=== PATIENT | male | born 1985 | race Caucasian/White ===

== ENCOUNTER 2018-02-26 15:42 | Emergency (ER) | payer OTHER ==
[~2018-02-26] VITALS: Ht 177.8 cm; Wt 88.6 kg
[2018-02-26] MEDS ORDERED: METF500T7 PO (16:00)
[2018-02-26] MEDS ORDERED: GLIP5 PO (16:00)
[2018-02-26 16:05] LABS: GLUCOSE,POINT OF CARE 290 MG/DL (70-110)
[2018-02-26] MEDS ORDERED: IBUPROFEN 600 MG TABLET PO ONE (17:00)
[2018-02-26 17:50] VITALS: BP 153/86
== END 2018-02-26 17:53 | disposition home or self-care (01) ==
LOC: EMS 15:45
DX: S93.402A Sprain of unspecified ligament of left ankle, initial encounter (principal); E11.9 Type 2 diabetes mellitus without complications; X58.XXXA Exposure to other specified factors, initial encounter; Y93.89 Activity, other specified; Y92.89 Other specified places as the place of occurrence of the external cause; Y99.8 Other external cause status
CPT/HCPCS: 29505; 29515; 99284

== ENCOUNTER 2018-03-01 14:41 | Emergency (ER) | payer OTHER ==
[~2018-03-01] VITALS: Ht 177.8 cm; Wt 88.2 kg
[~2018-03-01 14:41] MED LIST: GLIP5 PO; METF500T7 PO
[2018-03-01] MEDS ORDERED: IBUPROFEN 800 MG TABLET PO ONE (16:30)
[2018-03-01 18:38] LABS: GLUCOSE,POINT OF CARE 265 MG/DL (70-110)
[2018-03-01 18:48] VITALS: BP 132/82
== END 2018-03-01 18:35 | disposition home or self-care (01) ==
LOC: EMS 14:42
DX: S82.832A Other fracture of upper and lower end of left fibula, initial encounter for closed fracture (principal); R03.0 Elevated blood-pressure reading, without diagnosis of hypertension; E11.9 Type 2 diabetes mellitus without complications; X50.1XXA Overexertion from prolonged static or awkward postures, initial encounter; Y93.89 Activity, other specified; Y92.89 Other specified places as the place of occurrence of the external cause; Y99.8 Other external cause status
CPT/HCPCS: 29515; 99284

== ENCOUNTER 2018-04-03 13:00 | Emergency (ER) | payer OTHER ==
[~2018-04-03] VITALS: Ht 177.8 cm; Wt 188.0 kg
[2018-04-03] MEDS ORDERED: IBUPROFEN 800 MG TABLET PO ONE (14:00)
[2018-04-03 14:18] VITALS: BP 130/83
== END 2018-04-03 14:22 | disposition home or self-care (01) ==
LOC: EMS 13:01
DX: S82.832G Other fracture of upper and lower end of left fibula, subsequent encounter for closed fracture with delayed healing (principal); M79.672 Pain in left foot; E11.9 Type 2 diabetes mellitus without complications; X58.XXXD Exposure to other specified factors, subsequent encounter
CPT/HCPCS: 99283

== ENCOUNTER 2023-10-30 23:28 | Emergency (ER) | payer MEDICAID, OTHER ==
[~2023-10-30] VITALS: Ht 175.3 cm; Wt 84.1 kg
[~2023-10-30 23:28] MED LIST changes: -GLIP5 PO; +GLIP5TAB16 PO; +METF-81 PO; -METF500T7 PO
[2023-10-31] MEDS ORDERED: MIDAZOLAM HCL 5 MG/ML VIAL ONE (00:33)
[2023-10-31] MEDS: MIDAZOLAM HCL 5 MG/ML VIAL IVP ONE (00:53)
[2023-10-31] MEDS ORDERED: PERCT PO (01:13)
[2023-10-31] MEDS: KETAMINE HCL 50 MG/ML 10 ML VIAL IVP ONE ×2 (01:20→01:21)
[2023-10-31 01:45] VITALS: BP 120/72; PULSE 85; RESP 20; TEMP 98.6; O2SAT 95
[2023-10-31 04:06] LABS: GLUCOMETER DEV NAME(LOC) ERT.5; GLUCOSE,POINT OF CARE 380 MG/DL (70-110)
== END 2023-10-31 03:47 | disposition home or self-care (01) ==
LOC: EMS 23:28
DX: S53.115A Anterior dislocation of left ulnohumeral joint, initial encounter (principal); S53.125A Posterior dislocation of left ulnohumeral joint, initial encounter; E11.9 Type 2 diabetes mellitus without complications; X58.XXXA Exposure to other specified factors, initial encounter; Y93.72 Activity, wrestling; Y92.89 Other specified places as the place of occurrence of the external cause; Y99.8 Other external cause status
CPT/HCPCS: 99291; 24600; 82962; 73080; 99152; 73070; J3490; J2250